=== PATIENT | male | born 1965 | race Caucasian/White ===

== ENCOUNTER 2019-03-15 16:33 | Emergency (ER) | payer OTHER, SELFPAY ==
[2019-03-15 16:36] VITALS: BP 157/74; PULSE 75; RESP 20; TEMP 36.4; O2SAT 98
[2019-03-15 17:00] VITALS: BP 149/63; PULSE 82; RESP 16; O2SAT 99
--- NOTE | 2019-03-15 17:09 | ED.RECABL ---
HPI - Recheck/Abnormal Lab/Rx <MELCHOR Cerda - Last Filed: 03/15/19 18:45> General Chief Complaint: Recheck/Abnormal Lab/Rx Stated Complaint: Chronic hiccups Time Seen by Provider: 03/15/19 16:56 Source: patient Mode of arrival: Ambulatory Limitations: no limitations History of Present Illness HPI narrative: This is a 53-year-old male, nonsmoker, who presents to ED with his friend with chief complain of intermittent hiccups for last 3 days. Patient reports this started on night after he had chili and has been feeling sick and had taken anti acid medication. Patient was seen at [facility] [place] yesterday and had workup done for cardiac with EKG, blood test, and chest x-ray and state over 8 hours and was discharged to home with normal results. Patient states he was given Zofran and Reglan which helped with his symptoms and discharged to home with Zofran but has not picked this medication up yet and he is here to get another evaluation. Patient also states he had small specks of blood when he had emesis. Patient denies fever, chills, breathing difficulty. The patient denies chest pain but with constant hiccups, his chest feels tight. Patient lives in [place] and this hiccups started after he ate a bagel and for last [address] to [employer]. Related Data Previous Rx's Medication Instructions Recorded chlorpromazine 25 mg PO TID PRN #7 tab 03/15/19 Allergies Allergy/AdvReac Type Severity Reaction Status Date / Time No Known Drug Allergies Allergy Verified 03/15/19 16:45 Review of Systems <MELCHOR Cerda - Last Filed: 03/15/19 18:45> Review of Systems Narrative: General: Denies fever, chills, fatigue, malaise, sweats. HEENT: Denies sinus pain, ear pain, sore throat, difficulty swallowing, dizziness. Respiratory: Denies dyspnea, cough, wheezing, hemoptysis, sputum. Cardiovascular: Denies chest pain, palpitations, orthopnea, edema. Gastrointestinal: Denies (+) nausea, (+) vomiting, (+) hiccups, abdominal pain, diarrhea, constipation, melena. : Denies dysuria, frequency, incontinence, hematuria, urinary retention. Musculoskeletal: Denies weakness, joint pain or bony pain. Skin: Denies rash, skin lesions, or other. Neurologic: Denies weakness, headache, numbness, change in speech, confusion, seizures, incoordination. Psychiatric: No concerning psychosocial issues. 12-point review of systems is negative except for those stated above. Patient History <KEHINDE CerdaP - Last Filed: 03/15/19 18:45> Social History Smoking Status: Never smoker Smoking Status: Never smoker alcohol intake frequency: other Substance Use Type: does not use Exam <Osito Allan [facility] - Last Filed: 03/15/19 18:45> Narrative Exam Narrative: GEN: Alert, oriented x 3, well appearing and nourished, and in moderate distress from constant hiccups. Head: Normal cephalic, atraumatic. No scalp or temporal tenderness, palpable mass or rash. EYES: Pupils are equal, round, and reactive to light and accommodation. Extraocular muscles are intact bilaterally. There is no subconjunctival hemorrhage, exudate and sclera non-icteric. ENT: Bilateral auditory canals obscured with cerumen. Hearing grossly intact. Nose without bleeding, purulent discharge or deviation. Facial sinuses nontender to palpate. Mucous membrane moist, no mucosal lesion. Throat without erythema, tonsillar hypertrophy or exudate. Uvula in midline, airway patent. Neck: Trachea in midline. No JVD, non-tender without lymphadenopathy. No masses or thyroid megaly. Supple, non-tender and no meningeal signs. CARDIAC: Normal regular rate and rhythm without murmurs, gallops, or rubs. No chest wall tenderness. No peripheral edema, cyanosis or pallor. Capillary refill is less than 2 seconds. RESPIRATORY: Lungs are clear to auscultate bilaterally. No cough, wheezes, rales, or rhonchi. No stridor, respiratory distress, increase work of breathing, or accessary muscle used. ABD: Abdomen soft, nontender and non-distended. No guarding or rebound tenderness to palpate. Bowel sounds are normal in all 4 quadrants. There is no palpable masses or organomegaly. EXT: Full painless ROM of all extremities with no loss of sensation, strength, effusion or edema. SKIN: Warm, dry, normal color for patient. No erythema, lesions or rash over visible areas. BACK: Nontender without deformity or crepitance. No flank tenderness. NEUROLOGICAL: Alert and oriented to place, time and person. Sensation and motor function intact bilaterally. No facial droops, dysphasia. PSYCHIATRIC: Good judgement and reason, without hallucinations, abnormal affect or abnormal behaviors during the examination. Patient is not suicidal. Initial Vital Signs Initial Vital Signs: Vital Signs Temperature 97.6 F 03/15/19 16:36 Pulse Rate 75 03/15/19 16:36 Respiratory Rate 20 03/15/19 16:36 Blood Pressure 157/74 H 03/15/19 16:36 Pulse Oximetry 98 03/15/19 16:36 <Arcadio Syed DO - Last Filed: 03/15/19 19:03> Initial Vital Signs Initial Vital Signs: Vital Signs Temperature 97.6 F 03/15/19 16:36 Pulse Rate 75 03/15/19 16:36 Respiratory Rate 03/15/19 16:36 Blood Pressure 157/74 H 03/15/19 16:36 Pulse Oximetry 98 03/15/19 16:36 Scores <MELCHOR Cerda - Last Filed: 03/15/19 18:45> GCS Agapito coma scale eye opening: Spontaneous Agapito coma scale verbal response: Orientated Agapito coma scale motor response: Obey commands Agapito coma scale total score: 15 Course <MELCHOR Cerda - Last Filed: 03/15/19 18:45> Orders Ordered: ED Orders 03/15/19 16:48 EKG-12 Lead Stat Discontinued Medications Chlorpromazine HCl (Thorazine) 25 mg PO NOW ONE Stop: 03/15/19 17:31 Ondansetron HCl (Zofran Odt) 4 mg SL NOW ONE Stop: 03/15/19 17:19 Last Admin: 03/15/19 17:31 Dose: 4 mg Documented by: YESSICA Vital Signs Vital signs: Vital Signs - 8 hr 03/15/19 16:36 03/15/19 17:00 03/15/19 17:30 Temperature 97.6 F Pulse Rate 75 82 76 Respiratory Rate 20 16 Blood Pressure 157/74 H Blood Pressure [Left Arm] 149/63 H 139/73 Pulse Oximetry 98 99 100 03/15/19 18:03 Temperature Pulse Rate 74 Respiratory Rate 16 Blood Pressure Blood Pressure [Left Arm] 142/81 H Pulse Oximetry 96 <Arcadio Syed DO - Last Filed: 03/15/19 19:03> Orders Ordered: ED Orders 03/15/19 16:48 EKG-12 Lead Stat Discontinued Medications Chlorpromazine HCl (Thorazine) 25 mg PO NOW ONE Stop: 03/15/19 17:31 Ondansetron HCl (Zofran Odt) 4 mg SL NOW ONE Stop: 03/15/19 17:19 Last Admin: 03/15/19 17:31 Dose: 4 mg Documented by: YESSICA Vital Signs Vital signs: Vital Signs - 8 hr 03/15/19 16:36 03/15/19 17:00 03/15/19 17:30 Temperature 97.6 F Pulse Rate 75 82 76 Respiratory Rate 20 16 Blood Pressure 157/74 H Blood Pressure [Left Arm] 149/63 H 139/73 Pulse Oximetry 98 99 100 03/15/19 18:03 Temperature Pulse Rate 74 Respiratory Rate 16 Blood Pressure Blood Pressure [Left Arm] 142/81 H Pulse Oximetry 96 MDM - Recheck/Abnormal Lab/Rx <MELCHOR Cerda - Last Filed: 03/15/19 18:45> Differential Diagnosis Differential diagnosis: Likely other (hiccups, esphageal spasm, STEMI) Medical Records Attestation: I reviewed the patient's medical records. Lab Data Attestation: I reviewed the patient's lab results. Labs: Point of Care Testing Glucose POC 258 ECG Data Attestation: I personally reviewed and interpreted this ECG as follows: Prior ECG tracings: not available for review Interpretation: SR rate at 82. Left [place] deviation. No ST elevation or depression [facility] Narrative Medical decision making narrative: This is 53-year-old gentleman who is first-time visiting [place] [facility] [place] with chief complain of intermittent hiccups for last 3 days. Patient was evaluated at [facility] emergency room yesterday and had cardiac workup done after staying for 8 hours. Patient states today hiccups recurred after he had a bagel on the way to [employer] from [place]. He was prescribed with Zofran yesterday after ER visit but hasn't pick this up yet and his friend is currently at the pharmacy to pick this medication up. Patient states he also had small amount of emesis with blood specks which is new. EKG was normal sinus rhythm rate at 82 with left axis deviation w/o ST elevation or depression. Patient was medicated with Zofran ODT and shortly after his symptoms decreased. Patient's friend is concerned for hypoglycemia since patient had decreased oral intake. Blood glucose actually elevated to 258 today. Patient reports this is likely due to he has been feeling ill and has not been able to exercise much last several days. He usually try to keep his blood glucose last and 200 and is supposed to check daily in the morning. 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 Thorazine p.o. was ordered but not available hospital wide. Patient is requesting Rx for this in case. Patient advised to follow up with primary care physician if hiccups persists and return precautions were discussed with the patient. Patient verbalized understanding and agrees with the treatment plan. <Arcadio Syed, - Last Filed: 03/15/19 19:03> Lab Data Labs: Point of Care Testing Glucose POC 258 Discharge Plan Departure Patient Disposition: Home Clinical Impression: Hiccoughs, Hyperglycemia Discharge Date/Time: 03/15/19 18:29 Instructions: DI for Hyperglycemia -- Adult, DI for Hiccups Activity Restrictions/Additional Instructions: You have been diagnosed with [ intermittent hiccups for 3 days and hyperglycemia with a history of diabetes. You were medicated with Zofran while in ED which helped with her symptoms. Unfortunately, we do not have Thorazine in house at this time. However, this medication has been transmitted to [facility] in [facility] and try this medication next time when you do have hiccups again. Please cut of your food in small bites and chew very well before swallowing to prevent choking. Please eat bland diet, avoid spicy/fried food, carbonated drinks. Please hydrate well with small sips room temperature water throughout the day to avoid dehydration. We deferred blood tests and x-rays since you had it done yesterday at [facility] with normal results. Your EKG looked good today. Fingerstick glucose was elevated above 200 which is due to recent stress, illness.]. What to do: *Take your medications as directed. *Follow up with your primary care provider in 2-3 days at [facility], call for an appointment. Let them know you were seen in the ED and that we asked you to be seen in follow up. *Return to ED if you have any new, worsening, or concerning symptoms, such as [chest pain, breathing difficulty, choking, passing out, unable to tolerate fluids, or any acute concerns]. Prescriptions: New chlorpromazine 25 mg tablet 25 mg PO TID PRN (Reason: hiccups, nausea, vomit) Qty: 7 RF: 0 <Arcadio Syed, DO - Last Filed: 03/15/19 19:03> Sign Out Provider Sign Out Attestation: Dr Syed Co-Sign Statement: I was available for consultation during this patient's emergency department visit. This chart is signed by myself for administrative purposes only. I did not have direct contact with this patient during this visit. They were seen independently by the APC.
[2019-03-15 17:30] VITALS: BP 139/73; PULSE 76; O2SAT 100
[2019-03-15] MEDS: ONDANSETRON 4 MG ODT SL (17:31)
[2019-03-15 18:03] VITALS: BP 142/81; PULSE 74; RESP 16; O2SAT 96
== END 2019-03-15 18:29 | disposition home or self-care (01) ==
PROVIDERS: Emergency Provider Nurse Practitioner Family
DX: R06.6 Hiccough (principal); R73.9 Hyperglycemia, unspecified; R07.9 Chest pain, unspecified
CPT/HCPCS: 82962; 93005; 99283